=== PATIENT | female | born 1970 | race Caucasian/White ===

== ENCOUNTER → 2024-03-15 | Outpatient (CLI) | payer SELFPAY ==
--- NOTE | 2024-03-15 12:18 | US_ITS ---
EXAM: US PELVIS TRANSABDOMINAL AND TRANSVAGINAL, COMPLETE CLINICAL INDICATION: pelvic pain/uterine mass TECHNIQUE: Transabdominal and endovaginal pelvic ultrasound was performed with grayscale and color Doppler imaging. Endovaginal imaging was used for better evaluation of the endometrium and adnexa. COMPARISON: No relevant prior studies available. FINDINGS: UTERUS/CERVIX: Uterus measures 11.9 x 7.3 x 5.8 cm. Posterior 2.4 cm uterine fibroid noted. Additional smaller anterior fibroid suggested. Endometrial thickness is 8 mm. RIGHT OVARY: Normal. Blood flow is present in the right ovary. The right ovary measures 2.4 x 1.6 x 1.3 cm. LEFT OVARY: Normal. Blood flow is present in the left ovary. The left ovary measures 1.9 x 1.4 x 1.2 cm. FREE FLUID: None. US/Pelvic w/ Transvaginal IMPRESSION: Fibroid uterus. Electronically Signed: Kavin Yin MD at 15:48 EDT ,
--- OUTSIDE RECORDS SUMMARY | 2024-03-15 16:49 | XMS RPT_ITS | CCD ---
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 on above: Pattern: Regular 11-04-2022 09:30-0400 Systolic blood pressure 134 mm[Hg] Yolanda Everett MA [facility].; [employer] [employer] [facility]. Comment on above: Patient Position: Sitting; Cuff Location : Left Arm; Cuff Size: Standard 02-23-2021 10:29-0400 Body height 172.72 cm Moira Abbott LPN [facility], [facility].; [employer] [address], [facility]. 02-23-2021 10:29-0400 Body mass index (BMI) [Ratio] 39.84 kg/m2 Moira Abbott LPN [facility], [facility].; [place] [employer] [facility], [facility]. 02-23-2021 10:29-0400 Body surface area Derived from formula 2.29 m2 Moira Abbott LPN [facility], [facility].; [place] [employer] [facility]. 02-23-2021 10:29-0400 Body weight 118.84 kg Moira Abbott LPN [facility], [facility].; [place] [address], [employer]. 02-23-2021 10:29-0400 Diastolic blood pressure 83 mm[Hg] Moira Abbott LPN [facility], [facility].; [employer]. Comment on above: Patient Position: Sitting; Cuff Location : Left Arm; Cuff Size: Standard 02-23-2021 10:29-0400 Heart rate 76 /min Moira Marthey ENGINEERING MANAGER [employer].; [email or web address] Comment on above: Pattern: Regular 02-23-2021 10:29-0400 Systolic blood pressure 127 mm[Hg] Moira Abbott LPN [employer].; [email or web address] Comment on above: Patient Position: Sitting; Cuff Location : Left Arm; Cuff Size: Standard 02-28-2019 11:07-0400 Body height 172.72 cm Rachana Ramirez LPN Work Phone: [email or web address].; [email or web address] 02-28-2019 11:07-0400 Body mass index (BMI) [Ratio] 39.84 kg/m2 Rachana Ramirez ENGINEERING MANAGER Work Phone: [email or web address].; [email or web address] 02-28-2019 11:07-0400 Body surface area Derived from formula 2.29 m2 Rachana Ramirez LPN Work Phone: [email or web address].; [email or web address] 02-28-2019 11:07-0400 Body weight 118.84 kg Rachana Ramirez LPN Work Phone: [email or web address].; [email or web address] 02-28-2019 11:07-0400 Diastolic blood pressure 81 mm[Hg] Rachana Ramirez ENGINEERING MANAGER Work Phone: [email or web address].; [email or web address] Comment on above: Patient Position: Sitting; Cuff Location : Left Arm; Cuff Size: Standard 02-28-2019 11:07-0400 Heart rate 80 /min Rachana Ramirez ENGINEERING MANAGER Work Phone: [employer]; [email or web address] Comment on above: Pattern: Regular 02-28-2019 11:07-0400 Systolic blood pressure 145 mm[Hg] Rachana Peresy ENGINEERING MANAGER Work Phone: [email or web address].; [email or web address] Comment on above: Patient Position: Sitting; Cuff Location : Left Arm; Cuff Size: Standard 03-13-2018 14:28-0400 Body height 172.72 cm Rachana Ramirez LPN Work Phone: [employer]; [email or web address] 03-13-2018 14:28-0400 Body mass index (BMI) [Ratio] 41.66 kg/m2 Rachana Ramirez LPN Work Phone: [email or web address].; [email or web address] 03-13-2018 14:28-0400 Body surface area Derived from formula 2.34 m2 Rachana Ramirez LPN Work Phone: [email or web address].; [email or web address] 03-13-2018 14:280400 Body weight 124.29 kg Rachana Ramirez LPN Work Phone: [email or web address].; [email or web address] 03-13-2018 14:28-0400 Diastolic blood pressure 86 mm[Hg] Rachana Ramirez LPN Work Phone: [employer]; [email or web address] Comment on above: Patient Position: Sitting; Cuff Location : Left Arm; Cuff Size: Large 03-13-2018 14:28-0400 Heart rate 88 /min Rachana Ramirez LPN Work Phone: [employer]; [email or web address]. Comment on above: Pattern: Regular 03-13-2018 14:28-0400 Systolic blood pressure 142 mm[Hg] Rachana Ramirez LPN Work Phone: [employer]; [email or web address]. Comment on above: Patient Position: Sitting; Cuff Location : Left Arm; Cuff Size: Large 06-07-2016 11:28-0500 Body height 172.72 cm Rachana Ramirez LPN Work Phone: [email or web address].; [email or web address] 06-07-2016 11:28-0500 Body mass index (BMI) [Ratio] 39.38 kg/m2 Rachana James ENGINEERING MANAGER Work Phone: [employer]; [email or web address] 06-07-2016 11:28-0500 Body surface area Derived from formula 2.28 m2 Rachana Ramirez LPN Work Phone: [email or web address].; [email or web address] 06-07-2016 11:28-0500 Body weight 117.48 kg Rachana Ramirez ENGINEERING MANAGER Work Phone: [email or web address].; [email or web address] 06-07-2016 11:28-0500 Diastolic blood pressure 86 mm[Hg] Rachana Ramirez ENGINEERING MANAGER Work Phone: [email or web address].; [email or web address] Comment on above: Patient Position: Sitting; Cuff Location : Left Arm; Cuff Size: Large 06-07-2016 11:28-0500 Heart rate 91 /min Rachana Ramirez LPN Work Phone: [employer]; [email or web address]. Comment on above: Pattern: Regular 06-07-2016 11:28-0500 Systolic blood pressure 147 mm[Hg] Rachana Ramirez LPN Work Phone: [email or web address].; [email or web address] Comment on above: Patient Position: Sitting; Cuff Location : Left Arm; Cuff Size: Large 01-22-2012 09:18-0400 Body height 172.72 cm Thais Monge MD Work Phone: [email or web address].; [email or web address] 01-22-2012 09:18-0400 Body mass index (BMI) [Ratio] 35.12 kg/m2 Thais Monge MD Work Phone: [email or web address].; [email or web address] 01-22-2012 09:18-0400 Body surface area Derived from formula 2.17 m2 Thais Monge MD Work Phone: [email or web address].; [email or web address] 01-22-2012 09:18-0400 Body weight 104.78 kg Thais Monge MD Work Phone: [email or web address].; [email or web address] 01-22-2012 09:18-0400 Diastolic blood pressure 92 mm[Hg] Thais Monge MD Work Phone: [employer]. Comment on above: Patient Position: Sitting; Cuff Location : Left Arm; Cuff Size: Standard 01-22-2012 09:18-0400 Heart rate 63 /min Thais Monge MD Work Phone: [email or web address]. Comment on above: Pattern: Regular 01-22-2012 09:18-0400 Systolic blood pressure 142 mm[Hg] Thais Monge MD Work Phone: [employer]; [email or web address]. Comment on above: Patient Position: Sitting; Cuff Location : Left Arm; Cuff Size: Standard 06-01-2010 17:31-0500 Body weight 124.74 kg Rachana James ENGINEERING MANAGER Work Phone: [employer].; [email or web address] 06-01-2010 17:31-0500 Diastolic blood pressure 84 mm[Hg] Rachana James ENGINEERING MANAGER Work Phone: [employer].; [email or web address]. Comment on above: Patient Position: Sitting; Cuff Location : Left Arm; Cuff Size: Standard 06-01-2010 17:31-0500 Heart rate 86 /min Rachana James ENGINEERING MANAGER Work Phone: [employer].; [email or web address]. Comment on above: Pattern: Regular 06-01-2010 17:31-0500 Systolic blood pressure 136 mm[Hg] Rachana James ENGINEERING MANAGER Work Phone: [employer]; [email or web address]. Comment on above: Patient Position: Sitting; Cuff Location : Left Arm; Cuff Size: Standard 02-04-2010 14:39-0400 Body weight 123.38 kg Rachana James ENGINEERING MANAGER Work Phone: [employer]; [employer]. 02-04-2010 14:39-0400 Diastolic blood pressure 82 mm[Hg] Rachana Ramirez ENGINEERING MANAGER Work Phone: [email or web address].; [email or web address] Comment on above: Patient Position: Sitting; Cuff Location : Left Arm; Cuff Size: Standard 02-04-2010 14:39-0400 Heart rate 88 /min Rachana Ramirez ENGINEERING MANAGER Work Phone: [email or web address] Comment on above: Pattern: Regular 02-04-2010 14:39-0400 Systolic blood pressure 120 mm[Hg] Rachana Ramirez ENGINEERING MANAGER Work Phone: [employer]; [employer] Comment on above: Patient Position: Sitting; Cuff Location : Left Arm; Cuff Size: Standard Encounters Encounter Date Encounter Type Care Provider Facility Start: 03-01-2024 Review Thais dallas MD Work Phone: [employer] Start: 03-01-2024 End: 03-01-2024 Office outpatient visit 15 minutes Thais Monge MD Work Phone: [email or web address] Start: 08-19-2023 End: 08-19-2023 Orders Thais Monge MD Work Phone: [employer] Start: 06-03-2023 End: 06-03-2023 ambulatory [facility] Start: 06-03-2023 End: 06-03-2023 Office outpatient visit 15 minutes Thais Monge MD Work Phone: [employer] Start: 06-03-2023 Review Thais dallas MD Work Phone: [employer] Start: 11-04-2022 End: 11-04-2022 ambulatory [facility] Start: 11-04-2022 End: 11-04-2022 Office outpatient visit 15 minutes Thais Monge MD Work Phone: [employer] Start: 02-23-2021 End: 02-23-2021 Office outpatient visit 15 minutes Thais Monge MD Work Phone: [employer] Start: 05-31-2019 End: 05-31-2019 Historical Summary Thais Monge MD Work Phone: [employer] Start: 02-28-2019 End: 02-28-2019 Office outpatient visit 15 minutes Thais Monge MD Work Phone: [employer] Start: 03-13-2018 End: 03-13-2018 Patient encounter procedure Thais Monge MD Work Phone: [employer] Start: 06-07-2016 End: 06-07-2016 Patient encounter procedure Thais Monge MD Work Phone: [employer] Start: 01-22-2012 End: 01-22-2012 Patient encounter procedure Thais Monge MD Work Phone: [employer] Start: 06-15-2010 End: 06-15-2010 Nursing evaluation of patient and report Thais Monge MD Work Phone: [employer] Start: 06-01-2010 End: 06-03-2010 Patient encounter procedure Thais Monge MD Work Phone: [employer] Start: 05-28-2010 End: 05-28-2010 Nursing evaluation of patient and report Thais Monge MD Work Phone: [employer] Start: 05-14-2010 End: 05-14-2010 Nursing evaluation of patient and report Thais Monge MD Work Phone: [employer] Start: 05-07-2010 End: 05-07-2010 Orders Thais Monge MD Work Phone: [employer] Start: 04-30-2010 End: 04-30-2010 Nursing evaluation of patient and report Thais Monge MD Work Phone: [employer] Start: 04-24-2010 End: 04-24-2010 Medication [facility] Start: 04-23-2010 End: 04-23-2010 Orders Thais Monge MD [facility] Start: 04-16-2010 End: 04-16-2010 Nursing evaluation of patient and report Thais Monge MD Work [facility] Start: 04-08-2010 End: 04-08-2010 Orders Thais Monge MD Work Phone[facility] [employer] [facility] Start: 04-02-2010 End: 04-02-2010 Nursing evaluation of patient and report Thais Monge MD Work Phone: [employer] [facility] Start: 03-19-2010 End: 03-19-2010 Nursing evaluation of patient and report Thais Monge MD [facility] Start: 03-11-2010 End: 03-11-2010 Orders Thais Monge MD Work Phone: [employer] [facility] Start: 02-19-2010 End: 02-19-2010 Orders Thais Monge MD Work Phone: [employer] [facility] Start: 02-04-2010 End: 02-04-2010 Patient encounter procedure Thais Monge MD Work [facility] Procedures Date Procedure Procedure Detail Performing Clinician Start: 06-03-2023 End: 06-06-2023 Radiologic exam knee complete 4/more views Thais Monge MD Work Phone: Start: 11-04-2022 End: 11-05-2022 Dup-scan lxtr art/artl bpgs uni/lmtd study Dean Roche PA-C Work Phone: Start: 02-23-2021 End: 02-24-2021 Dup-scan lxtr art/artl bpgs uni/lmtd study Jennifer Sosa PA-C Work Phone: Start: 05-25-2019 End: 05-25-2019 pelvic u/s Thais Locke Work Phone: Comment on above: Within Normal Limits . Start: 03-02-2019 End: 03-02-2019 Microscopic examination of cervical Papanicolaou smear Thais Monge MD Work Phone: Comment on above: 02/04/10 neg, 9 neg no co-test Start: 03-02-2019 End: 05-31-2019 Us abdominal real time w/image documentation Thais Monge MD Work Phone: Start: 02-28-2019 End: 02-28-2019 Flu imm no admin doc erickson mao MD Work Phone: Start: 02-28-2019 End: 02-28-2019 Flu vaccine refused Rachana Ramirez LPN Work Phone: Start: 03-13-2018 End: 03-13-2018 Flu imm no admin doc erickson mao MD Work Phone: Start: 06-07-2016 End: 06-08-2016 Ct head/brain w/o contrast material Thais Monge MD Work Phone: Start: 01-22-2012 End: 01-25-2012 Dup-scan xtr veins unilateral/limited study Sadie Li MD Work Phone: Start: 07-13-2010 End: 12-30-2010 Dup-scan xtr veins unilateral/limited study Thais Monge MD Work Phone: Start: 04-08-2010 End: 04-13-2010 Dup-scan xtr veins unilateral/limited study Thais Monge MD Work Phone: Plan of Treatment Date Care Activity Detail Author Start: 06-03-2023 Radiologic exam knee complete 4/more views [facility] Start: 02-04-2010 Provider Instruction s for Treatment [facility], [facility].; [facility] Immunizations Immunization Date Immunization Notes Care Provider Fa cility NEGATED: Highlighted row has not occurred! influenza, injectable, quadrivalent, contains preservative Thais Monge MD Work Phone: [employer]; [employer] Payers Date Payer Category Payer Unknown [id number] 1970 Unknown [id number] Unknown Social History Date Type Detail Facility Child(glo) Child(glo) [employer]; [employer] Tobacco Use: Tobacco Use: ; Never smoker. [employer]; [employer] Female [employer]; [employer] Work Phone: Never smoked tobacco [employer]; [employer] Work Phone: Family History Endometriosis Status:Active Comments:Negativ e Family History Of. Leukemia Status:Active Comments:Son. Uterine Cancer Status:Active Comments:Negativ e Family History Of. Endometriosis Status:Active Comments:Negativ e Family History Of. Father Status:Active Comments:In good health. as of 06/03/2023 age 90 and doing well Leukemia Status:Active Comments:Son. Mother Status:Active Comments: d. CHF Uterine Cancer Status:Active Comments:Negativ e Family History Of. Endometriosis Status:Active Comments:Negativ e Family History Of. Father Status:Active Comments:In good health. as of 06/03/2023 age 90 and doing well Leukemia Status:Active Comments:Son. Mother Status:Active Comments: d. CHF Uterine Cancer Status:Active Comments:Negativ e Family History Of. Endometriosis Status:Active Comments:Negativ e Family History Of. Father Status:Active Comments:In good health. as of 06/03/2023 age 90 and doing well Leukemia Status:Active Comments:Son. Mother Status:Active Comments: d. CHF Uterine Cancer Status:Active Comments:Negativ e Family History Of. Endometriosis Status:Active Comments:Negativ e Family History Of. Father Status:Active Comments:In good health. as of 06/03/2023 age 90 and doing well Leukemia Status:Active Comments:Son. Mother Status:Active Comments: d. CHF Uterine Cancer Status:Active Comments:Negativ e Family History Of. Endometriosis Status:Active Comments:Negativ e Family History Of. Father Status:Active Comments:In good health. as of 06/03/2023 age 90 and doing well Leukemia Status:Active Comments:Son. Mother Status:Active Comments: d. CHF Uterine Cancer Status:Active Comments:Negativ e Family History Of. Summary Purpose Advance Directives No Advanced Directives Records Found Additional Source Comments INFORMATION SOURCE (unrecogn ized section and content) DATE CREATED AUTHOR 06/06/2023 [facility] FOR RECORDS PERTAINING TO PATIENTS WHO ARE OR HAVE BEEN ENROLLED IN A CHEMICAL DEPENDENCY/SUBSTANCEABUSE PROGRAM, SOME INFORMATION MAY BE OMITTED. This clinical summary was aggregated from multiple sources. Caution should be exercised in using it in the provision of clinical care. This summary normalizes information from multiple sources, and as a consequence, information in this document may materially change the coding, format and clinical context of patient data. In addition, data may be omitted in some cases. CLINICAL DECISIONS SHOULD BE BASED ON THE PRIMARY CLINICAL RECORDS. [email or web address] provides no warranty or guarantee of the accuracy or completeness of information in this document.
== END | disposition home or self-care (01) ==
PROVIDERS: PCP Family Medicine; Referring Provider Nurse Practitioner Family; Visit Provider Nurse Practitioner Family
DX: R10.2 Pelvic and perineal pain (principal); N85.8 Other specified noninflammatory disorders of uterus
CPT/HCPCS: 76830; 76856

== ENCOUNTER 2024-05-01 10:34 | Day surgery (SDC) | payer SELFPAY ==
[2024-05-01] VITALS (10 sets, daily range): BP systolic 115–149; BP diastolic 57–80; PULSE 72–82; RESP 16–18; TEMP 36.1–36.9; O2SAT 95–100; BMI 42.1
[2024-05-01 11:05] LABS: Internal QC Validated? YES +Cl - CLEAR BKGD; Pregnancy, Urine Negative Negative
[2024-05-01 11:34] LABS: Hematocrit 26.4 % (37-47); Mean Corp Hgb Conc 26.5 g/dL (32-36); Mean Corpuscular Hgb 18.3 pg (27.0-32.0); Mean Corpuscular Volume 69.1 fL (81-99); Mean Platelet Vol. 9.8 fl (6.2-12.0); POSITIVE MORPHOLOGY YES; Platelet Count 419 K/mm3 (150-450); RBC Distribution Width CV 21.1 % (11.6-14.6); RBC Distribution Width SD 51.7 fl (35.1-43.9); Red Blood Count 3.82 M/mm3 (4.2-5.4); White Blood Count 6.9 K/mm3 (4.4-11.0)
[2024-05-01 11:39] LABS: Scan Indicated on CBC? Y/N YES- FLAGS NOTED
[2024-05-01 11:53] LABS: Differential Comment SCANNED
--- NOTE | 2024-05-01 11:57 | PCM.PRE.AN2 ---
ASA Classification* ASA Classification ASA Classification: 3 Assessment & Plan Anesthesia* Anesthesia Assessment Anesthesia Assessment: Discussed sedation and/or anesthesia options, risks, benefits, and alternatives with patient/parents/legal guardian/POA. Questions invited. The patient/parents/legal guardian/POA seems to understand and agrees to proceed with anesthesia plan. Reviewed the physical assessment, medical history, allergy history and patient home medications list prior to surgery/procedure/anesthetic and documented any changes. Performed airway and anesthesia risk assessments. Anesthesia Type Anesthesia Type: MAC Anesthesia Focused Assessment* Temperature: 97 F Pulse Rate: 77 Blood Pressure: 149/68 Respiratory Rate: 16 Pulse Ox: 100 Airway Assessment Mouth opens: >3 cm Mallampati Score: II Focused Labs Anesthesia Preop lab: CBC WBC 6.9 K/mm3 (4.4-11.0) 05/01/24 11:15 RBC 3.82 M/mm3 (4.2-5.4) L 05/01/24 11:15 Hgb 7.0 g/dL (12.0-15.0) L 05/01/24 11:15 Hct 26.4 % (37-47) L 05/01/24 11:15 Plt Count 419 K/mm3 (150-450) 05/01/24 11:15 CHEMISTRY COAG Urine Test Negative Negative 05/01/24 10:55 Pre-Assessment Diagnosis/Proposed Procedure Planned Operative Procedure(s): HYSTEROSCOPY D&C CERVICAL CONIZATION Anesthesia History 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 When Was Last Pacemaker Check QUESTION #4 FULL TEXT: You/Your Family Experience fever (hyperthermia) with Anesthesia Last Oral Intake Last Oral intake: Last Oral Intake NPO since 23:00 05/01/24 11:09 Meds taken in AM with sips of water? Meds patient instructed to take am of surgery PONV PONV - sugar house supervisor: PONV - sugar house supervisor Female Yes 04/25/24 10:52 HX of Motion Sickness No 04/25/24 10:52 HX of N/V After Surgery No 04/25/24 10:52 Non-Smoker Yes 04/25/24 10:52 Duration of Surgery greater No 04/25/24 10:52 than 60 minutes Number of Risk Factors 2 04/25/24 10:52 PONV Score Moderate Risk 04/25/24 10:52 Height & Weight Height & Weight: Anesthesia: Height & Weight Height 5 ft 7 in 05/01/24 11:09 Weight: 122 kg 05/01/24 11:09 Body Mass Index (BMI) 42.1 05/01/24 11:09 Respiratory Assessment Respiratory Assessment - sugar house supervisor: Respiratory Tract Infection Hx - sugar house supervisor Hx Respiratory Tract Infection No 04/25/24 10:52 STOP Sleep Apnea STOP Sleep Apnea - sugar house supervisor: STOP Sleep Apnea - sugar house supervisor Hx Hypertension No 04/25/24 10:52 Hx Sleep Apnea No 04/25/24 10:52 CPAP BIPAP Do you snore loudly (louder Yes 04/25/24 10:52 than talking or can be heard Do you often feel tired/ No 04/25/24 10:52 fatigued/ sleepy during daytime? Has anyone observed you stop No 04/25/24 10:52 breathing during sleep? STOP Results Negative 04/25/24 10:52 QUESTION #5 FULL TEXT : Do you snore loudly (louder than talking or can be heard through closed doors)? Tobacco Use History Tobacco Use History - sugar house supervisor: Tobacco Use History - sugar house supervisor Tobacco Use Smoking Status Never smoker 04/25/24 10:52 Hx Tobacco Use No 04/25/24 10:52 Years Smoking Packs Smoked per Day Smoking Cessation Date was within the last 15 years Hx Smoking Cessation Date Hx Smoking Cessation Counseling Hematologic Medial History Hematologic Hx - sugar house supervisor: Hematologic Medical Hx - stock supervisor Hx of Blood Transfusion Yes 04/25/24 10:52 Hx of Transfusion in last 3 No 04/25/24 10:52 Months Date of Last Transfusion (if within last 3 months) Ever experience any problems No 04/25/24 10:52 with transfusion(s)? Specify any problems Hx of Preganancy in last 3 No 04/25/24 10:52 Months Nurse Filling Out Transfusion DSCHRIBER 04/25/24 10:52 & Questions: Date: 04/25/24 04/25/24 10:52 Time: 10:53 04/25/24 10:52 Patient unable to answer at this time (ie. confused, unrespo /Reproduction History /Reproductive History - sugar house supervisor: /Reproductive Hx- sugar house supervisor Hx Now No 04/25/24 10:52 Gestational Age (in weeks): EDC: Hx Hx Para Hx Section SAB No 04/25/24 10:52 PFS Medical History Wears glasses DVT (deep venous thrombosis) Restless legs Injury of head and neck Shortness of breath on exertion Non-smoker Leg cramps History of pain when walking History of edema History of tachycardia Hx of fracture of leg Home Medications ?Medication ?Instructions ?Recorded ?Last Taken ?Type ARTIC SEA 5 cap PO DAILY 04/25/24 05/01/24 History magnesium 250 mg tablet 250 mg PO DAILY 04/25/24 05/01/24 History Allergy/AdvReac Type Severity Reaction Status Date / Time No Known Allergies Allergy Verified 05/01/24 11:08 Family History Mother Heart failure Brother Diabetes Surgical History Hx of cholecystectomy Social History adopted: No household members: spouse and children number of children: 7 sexually active: Yes (not currently w poss prolapse) Smoking Status: Never smoker alcohol intake: never substance use type: does not use chay/congregation: Sikh seatbelt use: always do you feel safe at home: Yes additional social history: Joey- Review of Systems (Anesthesia) ROS Narrative System reviewed and no additional complaints, except as documented.
--- NOTE | 2024-05-01 12:14 | HP.PCM_ITS ---
<Statement entered by Brittani Cho DO - 05/04/24 17:33> UPDATE- I have seen the patient and performed any clinically relevant updates to the history and physical exam. Brittani Cho DO History and Physical Date of Admission: 05/01/24 Intake Vital Signs 03/14/2413:03 04/05/2413:50 Height 5 ft 7 in 5 ft 7 in Weight: 265 lb 269 lb 6 oz BMI 41.5 42.2 BP 157/84 H 157/82 H Intake Visit Reasons: DISCUSS US/UTERINE MASS. 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: No Is patient in pain?: No Allergies No Known Allergies Allergy (Verified 04/05/24 13:53) Medications ?Medication ?Instructions ?Recorded ?Confirmed ?Type NK 03/14/24 04/05/24 History Post menopausal: No Patient : No : No PFSH Surgical History Hx of cholecystectomy Family History Mother Heart failureBrother Diabetes Social History adopted: No household members: spouse and children number of children: 7 sexually active: Yes (not currently w poss prolapse) Smoking Status: Never smoker alcohol intake: never substance use type: does not use chay/episcopalian: Stoney seatbelt use: always do you feel safe at home: Yes additional social history: Joey- HPI DISCUSS US/UTERINE MASS. Details: RADHA GRIFFITHS is a 53 year old who presents for discussion about something coming through the cervix or vagina and it has started bleeding a little and is causing pain. Ultrasound shows the following: EXAM: US PELVIS TRANSABDOMINAL AND TRANSVAGINAL, COMPLETE CLINICAL INDICATION: pelvic pain/uterine mass TECHNIQUE: Transabdominal and endovaginal pelvic ultrasound was performed with grayscale and color Doppler imaging. Endovaginal imaging was used for better evaluation of the endometrium and adnexa. COMPARISON: No relevant prior studies available. FINDINGS: UTERUS/CERVIX: Uterus measures 11.9 x 7.3 x 5.8 cm. Posterior 2.4 cm uterine fibroid noted. Additional smaller anterior fibroid suggested. Endometrial thickness is 8 mm. RIGHT OVARY: Normal. Blood flow is present in the right ovary. The right ovary measures 2.4 x 1.6 x 1.3 cm. LEFT OVARY: Normal. Blood flow is present in the left ovary. The left ovary measures 1.9 x 1.4 x 1.2 cm. FREE FLUID: None. US/Pelvic w/ Transvaginal IMPRESSION: Fibroid uterus. The patient states that her last pap was with her pcp 2 years ago and was normal. She has never had any abnormal paps before. History 7 Elective abortions Hx Para 7 Spontaneous abortions Hx # Term Pregnancies Ectopic pregnancies Hx # Pregnancies Multiple births # of living children 7 Past Pregnancies Del. Date Name GA/Weeks Outcome Route Bth Weight Gen Labor Lgth Anesthesia Del Locatn Provider FOB 12/31/93 [facility] 11/09/95 Samm Stewart [facility] 04/14/98 Horace [facility] 06/05/00 Xena [facility] 12/07/02 Alena [facility] 12/15/07 Sademartha [facility] 12/25/09 Tylor [facility] ROS Const ROS Unobtainable: All systems reviewed & are unremarkable except as noted in H Resp Resp: Reports system reviewed and no additional complaints, except as documented; Denies cough GI GI: Reports as per HPI Psych Psych: Reports system reviewed and no additional complaints, except as documented Exam Const General: cooperative, healthy appearing, comfortable and no acute distress Resp Effort & Inspection: normal respiratory effort General: bimanual renal exam normal bilaterally External Female Exam: normal appearance of the urethra Urethra: normal appearance of the urethra Speculum Exam - Vagina: normal appearance of the vagina Speculum Exam - Cervix: abnormal appearance of the cervix, cervical os open and mass (large non-tender, firm mass, likely consistent with a fibroid. ) pedunculated Bimanual Exam- Adnexa, other: normal adnexae, rectocele (mild ) and cystocele (mild) Pelvic Support: cystocele (mild) and rectocele (mild ) OB/External & Speculum: cervical os open Speculum Exam: cervical os open Skin General: no rashes or lesions noted Psych Appearance: grossly normal Speech and Movement: speech and movement normal Coding Level of Care Code Off vis,est,level 4 Diagnoses Uterine fibroid D25.9 Pelvic pain R10.2 Assessment and Plan Assessment and Plan (1) Uterine fibroid: Status: Acute (2) Pelvic pain: Status: Acute Plan: After discussing the patient's diagnosis and treatment plan options, patient wishes to proceed with surgical management. I have discussed with the patient the risks, benefits, and alternatives of the procedure which include but are not limited to risks of anesthesia, bleeding, infection, possible damage to bowel, bladder, or surrounding vasculature which could lead to additional surgery to evaluate any complications. Patient agrees to procedure and wishes to proceed. ACOG/uptodate references given for additional information regarding procedure. plan is to remove the pedunculated cervical fibroid with electrocautery or cold knife and perform a hysteroscopy D&C after removal.
--- NOTE | 2024-05-01 12:40 | MASS_PTH ---
PATIENT: RADHA GRIFFITHS LOC: [facility] [place] U#:[id number] AGE/SX: 53/F ROOM: RE05/01/[address]: Dr. Brittani Cho DO : 1970 BED: DIS: 05/01/2024 SPEC #: [id number] RECD: 05/02/24 07:26 STATUS: VICKIE YORDY #: [id number] LUZ MARIA: 05/01/24 12:[address]: Brittani Cho DEPT: SURGICAL PATHOLOGY RECD BY: Rachele Adrian ENTERED: 05/02/24 11:22 SP TYPE: Mass OTHR DR: Dr. Samm Jansen MD Tissues: A - Uterine cervix, NOS B - Endometrium, NOS Procedures: Surgery Specimen Level IV HEADER OPERATION: Hysteroscopy, D&C, removal of cervical mass PRE-OP DIAGNOSIS: Uterine fibroid, pelvic pain TISSUE SUBMITTED: A- Cervical mass, B- Endometrial curettings MICROSCOPIC DIAGNOSIS A. Cervical mass, excision: Leiomyoma. A fragment of benign endocervical polyp. See comment. B. Endometrial curettings: Secretory endometrium. 05/03/2024 COMMENT A. Most of the lesion shows overlying endometrial tissue, favor submucosal leiomyoma, focal area shows squamous epithelium lining. Correlation with clinical findings and appropriate follow up are necessary. Case has been reviewed in consultation with Dr. Crum who concurs with the above diagnosis. IDC:AM MICROSCOPIC DESCRIPTION Slides are reviewed. GROSS DESCRIPTION A. Received in fixative is one container labeled with the patient's name and designated Cervical mass. The specimen consists of a jj nodular mass measuring 5.0 x 4.5 x 3.0cm and weighing 29gm. Sections reveal jj whorled cut surfaces without areas of hemorrhage, necrosis or cystic degeneration Also present in the container is a detached piece of soft tissue measuring 1.5 x 1.0 x 0.3cm.. Dry Cleaner Apprentice sections are submitted in six cassettes. Cassette 1 contains the detached piece of tissue and the base of the nodular piece of tissue. B. Received in fixative is one container labeled with the patient's name and designated Endometrial curettings. The specimen consists of multiple irregular fragments of jj-pink soft tissue mixed with polypoid tissue and blood clots that in aggregate measure 6.0 x 5.0 x 1.5 cm. The specimen is totally submitted in ten cassettes. 05/02/2024 TC:1 CPT:67466f2
--- NOTE | 2024-05-01 13:30 | DCINST_ITS ---
Discharge Instructions Diet Discharge Diet: No restrictions DC O2, CPAP, BIPAP needs Additional Home O2 Discharge instructions: No Dressing / Incision Discharge Activity: Return to Normal Activity, May Shower and May Take a Tub Bath (after 1 week) May resume sexual activity in: 1-2 weeks Weight Bearing Status: Weight bearing as tolerated Lifting Restrictions: none Dressing / Incision Call your doctor if you observe: Fever of 101 or Higher, Using more than 1 pad per hour, Shortness of breath and Uncontrolled pain Follow Up Care Please Follow Up With: Brittani Cho DO When: Call [phone] to schedule appointment. Test Results: Test results from this visit will be discussed in further detail at your follow- up appointment, if applicable. Discharge Plan Admission Attending Provider: Brittani Cho Primary Care Provider: Samm Jansen Instructions Print Language: Syriac Discharge Orders/Prescriptions Prescriptions: New ibuprofen 800 mg tablet 800 mg PO Q8H PRN (Reason: pain) Qty: 30 0RF ferrous gluconate 324 mg (37.5 mg iron) tablet 648 mg PO BID Qty: 60 3RF Continued ARTIC SEA 5 cap PO DAILY magnesium 250 mg tablet 250 mg PO DAILY Referrals / Follow Up: Samm Jansen MD [Primary Care Provider] - Disposition Disposition (needs filled in before D/C Order can be placed): Home, Self Care
[2024-05-01] MEDS: Lidocaine 1% (20 ml mdv) 20 ML Vial (13:41)
--- NOTE | 2024-05-01 14:26 | PCM.OPRPT ---
Problems Associated Problem List Diagnoses (1) Uterine fibroid: (2) Pelvic pain: (3) Menorrhagia: (4) Anemia: (5) Uterine mass: Multi Select Codes Urinary/Genital Urinary/Genital CPT Codes: 61145 Hysteroscopy,EMC, Polypectomy and Other Procedure See Report (removal of cervical mass. 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 machine operator: No Type of Anesthesia: Local and MAC RN Documented Start/Stop Times: Operation Date: 05/01/24 12:40 Case Time Into Pre-Op 05/01/24 10:58 Anesthesia Start 05/01/24 13:24 Into Room 05/01/24 13:24 Procedure Start 05/01/24 13:42 Procedure End 05/01/24 13:55 Procedure Start Time: 13:42 Procedure Stop Time: 13:55 Select all DRAINS/GRAFTS/IMPLANTS that apply: None Estimated Blood Loss: 20cc Specimen collected: Yes Description of specimen(s) removed: cervical mass, endometrial curetting's Description of surgery: Patient was prepped and draped in a normal sterile fashion under MAC anesthesia. A weighted speculum was placed in the vagina and a large protruding cervical mass was identified. The mass was grasped with a single toothed tenaculum and twisted on the the stalk until it came off. A secondary polyp structure was noted on the cervix. This was grasped with pick ups and cut off using scissors. The anterior lip of the cervix was grasped with a single-tooth tenaculum. A paracervical block was placed with 1% lidocaine. Cervix was progressively dilated to allow passage of a 5 mm hysteroscope. The lining was fully visualized and noted to have proliferative tissue and a fundal firm mass, likely secondary to a fibroid. Uterine sounded to 11 cm. Curettage was performed and a large amount of tissue was collected and sent to pathology. All instruments were removed from the vagina and excellent hemostasis was noted. Patient was awoken and taken to recovery in stable condition. Surgical Findings: large cervical mass, thick endometrial tissue, uterine prolapse with rectocele grade 2 Complications Complications: No Admit VTE Documentation VTE Present on Admission: No VTE Mechan Device Prophylaxis: SCD's VTE Pharm Prophylaxis ordered?: No
--- NOTE | 2024-05-01 14:48 | PCM.POST.ANE ---
Anesthesia: Postop Eval I Current Vital Signs Temperature: 97 F Pulse Rate: 78 Blood Pressure: 123/69 Respiratory Rate: 16 Pulse Ox: 98 Oxygen Delivery Method: Room Air Assessment Airway patent: Yes Spontaneous unlabored respirations: Yes Mental status: Awake and Calm nausea: No Vomiting: No Anesthesia Complication: No Fluid Hydration Crystalloid volume administer (ml): 30 Total IV fluid infused: 30 Progress Note Anesthesia document: Postop Eval 1 completed: Yes
[2024-05-01] MEDS: Ibuprofen 200 MG Tablet 800 MG PO (15:08)
--- NOTE | 2024-05-01 18:52 | POSTOPAN2_ITS ---
Anesthesia Postop Eval I Sum Postop Eval Completion status Anesthesia document: Postop Eval 1 completed: Yes Anesthesia Postop Eval I Summary Anesthesia Postop Eval I Summary: Anesthesia Postop Eval I: Assessment Summary Airway patent Yes 05/01/24 14:50 PAPER COATING MACHINE OPERATOR.[email or web address] Spontaneous unlabored Yes 05/01/24 14:50 PAPER COATING MACHINE OPERATOR.JBLOU respirations Mental status Awake,Calm 05/01/24 14:50 PAPER COATING MACHINE OPERATOR.JBLOU nausea No 05/01/24 14:50 PAPER COATING MACHINE OPERATOR.JBLOU Vomiting No 05/01/24 14:50 PAPER COATING MACHINE OPERATOR.JBLOU Anesthesia Postop Eval I: Fluid Summary Crystalloid volume administer 30 05/01/24 14:50 PAPER COATING MACHINE OPERATOR.JBLOU (ml) Colloids volume administered ( ml) Blood Product volume administered (ml) Total IV fluid infused 30 05/01/24 14:50 PAPER COATING MACHINE OPERATOR.JBLOU Anesthesia Postop Eval I: Summary Notes Anesthesia Complication No 05/01/24 14:50 PAPER COATING MACHINE OPERATOR.JBLOU Anesthesia Complication Comment: Post-operative progress note Anesthesia: Postop Eval II Evaluation Mental status: Awake Pain Level: 2 nausea: No Vomiting: No
--- NOTE | 2024-05-01 18:52 | PCM.POSTANE2 ---
Anesthesia Postop Eval I Sum Postop Eval Completion status Anesthesia document: Postop Eval 1 completed: Yes Anesthesia Postop Eval I Summary Anesthesia Postop Eval I Summary: Anesthesia Postop Eval I: Assessment Summary Airway patent Yes 05/01/24 14:50 BANDER AND CELLOPHANER HELPER MACHINE.[email or web address] Spontaneous unlabored Yes 05/01/24 14:50 BANDER AND CELLOPHANER HELPER MACHINE.JBLOU respirations Mental status Awake,Calm 05/01/24 14:50 BANDER AND CELLOPHANER HELPER MACHINE.JBLOU nausea No 05/01/24 14:50 BANDER AND CELLOPHANER HELPER MACHINE.JBLOU Vomiting No 05/01/24 14:50 BANDER AND CELLOPHANER HELPER MACHINE.JBLOU Anesthesia Postop Eval I: Fluid Summary Crystalloid volume administer 30 05/01/24 14:50 BANDER AND CELLOPHANER HELPER MACHINE.JBLOU (ml) Colloids volume administered ( ml) Blood Product volume administered (ml) Total IV fluid infused 30 05/01/24 14:50 BANDER AND CELLOPHANER HELPER MACHINE.JBLOU Anesthesia Postop Eval I: Summary Notes Anesthesia Complication No 05/01/24 14:50 BANDER AND CELLOPHANER HELPER MACHINE.JBLOU Anesthesia Complication Comment: Post-operative progress note Anesthesia: Postop Eval II Evaluation Mental status: Awake Pain Level: 2 nausea: No Vomiting: No
== END 2024-05-01 16:35 | disposition home or self-care (01) ==
LOC: SDC 10:44 → AC 10:46
PROVIDERS: Anesthesiology; PCP Family Medicine; Referring Provider Obstetrics & Gynecology; Visit Provider Obstetrics & Gynecology
PROC: 0UDB8ZZ Extraction of Endometrium, Via Natural or Artificial Opening Endoscopic (ICD-10-PCS; CPT 58558; principal; 2024-05-01 12:30)
DX: D25.0 Submucous leiomyoma of uterus (principal); N84.1 Polyp of cervix uteri; N92.0 Excessive and frequent menstruation with regular cycle; N81.2 Incomplete uterovaginal prolapse; D64.9 Anemia, unspecified
CPT/HCPCS: 58558; 00952; 81025; 85027; 86850; 86900; 86901; 88305; A4216; J2405

== ENCOUNTER → 2024-05-24 | Outpatient (CLI) | payer SELFPAY ==
[2024-05-24 15:44] LABS: Hematocrit 34.4 % (37-47); Hemoglobin 9.7 g/dL (12.0-15.0); Mean Corp Hgb Conc 28.2 g/dL (32-36); Mean Platelet Vol. 9.4 fl (6.2-12.0); POSITIVE MORPHOLOGY YES; Platelet Count 452 K/mm3 (150-450); RBC Distribution Width CV 28.4 % (11.6-14.6); RBC Distribution Width SD 76.6 fl (35.1-43.9); Red Blood Count 4.41 M/mm3 (4.2-5.4); White Blood Count 7.9 K/mm3 (4.4-11.0)
[2024-05-24 16:20] LABS: Scan Indicated on CBC? Y/N YES- FLAGS NOTED
[2024-05-24 16:23] LABS: Differential Comment SCANNED
== END | disposition home or self-care (01) ==
PROVIDERS: PCP Family Medicine; Referring Provider Obstetrics & Gynecology; Visit Provider Obstetrics & Gynecology
DX: D64.9 Anemia, unspecified (principal)
CPT/HCPCS: 36415; 85027

== ENCOUNTER 2025-03-06 10:30 | Outpatient (RCR) | payer SELFPAY ==
--- NOTE | 2024-09-06 10:42 | HP.PTEVAL ---
Patient's Visit Information Visit Information Visit Information: RADHA GRIFFITHS is a 53 year old F referred to Physical Therapy by Dr. Brittani Cho DO with a diagnosis of . Date of Evaluation: Physical Therapist: Rosanna Wyatt Anticipated Interventions Text: Thank you for the opportunity to evaluate your patient. For Medicare and Medicare HMO plans, please review the plan of care and approve it. It will need to be FAXED BACK to us at [phone] for Medicare purposes. For Medicare only, by signing this I certify the plan of care. Please let me know if there are questions or concerns regarding this plan of care. Physician Signature: Date:
--- NOTE | 2024-09-06 11:46 | HP.PTEVAL_ITS ---
Patient's Visit Information Visit Information Visit Information: RADHA GRIFFITHS is a 53 year old F referred to Physical Therapy by Dr. Brittani Cho DO with a diagnosis of Cystocele, rectocele, uterovaginal prolapse. Date of Evaluation: 09/06/24 Physical Therapist: Rosanna Wyatt Visit Plan Frequency: 1x/Week Duration: 2 Months Plan: Continue 1 x week. Add week 2. Continue pelvic floor releases to address tightness (worse on left side layer 2-3). Look at breathing mechanics and low back next visit. Has she tried splinting? Subjective Subjective: She had her fibroid tumor removed from her cervix in April 2024. She could feel it right inside the vaginal opening. She had surgery in April. In June, she started feeling something again. She thought it was another fibroid. She had quite a bit of pain with the fibroid. She isn't having bulging outside and it goes away sometimes. Dr. Benítez said she could do surgery. She mentioned a pessary but she wants to try PT first. Sometimes she feels that she doesn't empty her bladder completely. She hasn't had a period in 4-5 months. No leakage. She feels pressure vaginally with lifting. She doesn't think she "works hard". She does housework, cooking, gardening. 7 children, 10 pregnancies. All vaginal deliveries. First baby she had major tearing with 20 stitches. Sometimes she has lower back pain. Not that she can't do her work. More at nighttime. Not worse on one side. Sometimes she feels like she doesn't empty her bowels completely. She gets up 2 x night. She hasn't tried kegels. No pain. She is uncomfortable with intercourse. Her goal is to manage the prolapses without surgery. Pain Low back pain: Pain Intensity (Out of 10): 2 Pain Intensity Range: 2 and 4 Objective Objective: POPDI-6 5, CRAD-8 9, NILDA-6 2 LAYCOCK 1 DIFFICULTY RELAXING AND ENGAGING ANTERIORLY- contraction barely palpable MILD, MODERATE PELVIC FLOOR TIGHTNESS LEFT SIDE LAYER 2-3 CYSTOCELE 1 RECTOCELE 2 Can feel cervix at tip of finger Did not look at breathing or low back yet Goals Goal 1:: Radha will be able to be on her feet for up to 1-2 hours at a time to do cooking activities without feeling vaginal pressure due to her prolapse. 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 Goal Time Frame: 8-12 Weeks Goal 3:: Radha will be independent with splinting for bowel movements and will not experience difficulty eliminating. Goal Time Frame: 8-12 Weeks Rehabilitation Potential Physical Therapy Diagnosis: Rectocele, Cystocele Rehabilitation Potential: Good Anticipated Interventions Patient/Client Instruction: Educate patient on: Condition and Plan of Care For the Purpose of:: To improve muscle performance and motor function, To improve ability to perform ADL's, To increase tolerance to activity/condition/position, To improve health and function and To improve self management Therapeutic Exercise to Include: Strength training and Neuromotor development Comment: Pelvic floor strengthening to support pelvic organs and lessen prolapse For the Purpose of:: To improve muscle performance and motor function, To increase tolerance to activity/condition/position, To improve performance and independence with ADL's, To improve health and function and To improve self management Manual Therapy Techniques to Include: Trigger point massage and Soft tissue mobilization For the Purpose of:: To improve muscle performance and motor function Text: Thank you for the opportunity to evaluate your patient. For Medicare and Medicare HMO plans, please review the plan of care and approve it. It will need to be FAXED BACK to us at [phone] for Medicare purposes. For Medicare only, by signing this I certify the plan of care. Please let me know if there are questions or concerns regarding this plan of care. Physician Signature: Date:
--- NOTE | 2024-09-06 12:01 | HP.PTEVAL ---
Patient's Visit Information Visit Information Visit Information: RADHA GRIFFITHS is a 53 year old F referred to Physical Therapy by Dr. Brittani Cho DO with a diagnosis of Cystocele, rectocele, uterovaginal prolapse. Date of Evaluation: 09/06/24 Physical Therapist: Rosanna Wyatt Visit Plan Frequency: 1x/Week Duration: 2 Months Plan: Continue 1 x week. Add week 2. Continue pelvic floor releases to address tightness (worse on left side layer 2-3). Look at breathing mechanics and low back next visit. Has she tried splinting? Subjective Subjective: She had a fibroid tumor removed from her cervix in April 2024. She could feel it right inside the vaginal opening. She had surgery in April. In June, she started feeling something again. She thought it was another fibroid. She had quite a bit of pain with the fibroid but nothing recently. She isn't having bulging outside and it goes away sometimes. Dr. Benítez said she could do surgery. She mentioned a pessary but she wants to try PT first. Sometimes she feels that she doesn't empty her bladder completely. She hasn't had a period in 4-5 months. No leakage. She feels pressure vaginally with lifting. She doesn't think she "works hard". She does housework, cooking, gardening. 7 children, 10 pregnancies. All vaginal deliveries. First baby she had major tearing with 20 stitches. Sometimes she has lower back pain. Not that she can't do her work. More at nighttime. Not worse on one side. Sometimes she feels like she doesn't empty her bowels completely. She gets up 2 x night. She hasn't tried kegels. No pain. She is uncomfortable with intercourse. Her goal is to manage the prolapses without surgery. Pain Low back pain: Pain Intensity (Out of 10): 2 Pain Intensity Range: 2 and 4 Objective Objective: POPDI-6 5, CRAD-8 9, NILDA-6 2 LAYCOCK 1 DIFFICULTY RELAXING AND ENGAGING ANTERIORLY- contraction barely palpable MILD, MODERATE PELVIC FLOOR TIGHTNESS LEFT SIDE LAYER 2-3 CYSTOCELE 1 RECTOCELE 2 Can feel cervix at tip of finger Did not look at breathing or low back yet Goals Goal 1:: Radha will be able to be on her feet for up to 1-2 hours at a time to do cooking activities without feeling vaginal pressure due to her prolapse. 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 Goal Time Frame: 8-12 Weeks Goal 3:: Radha will be independent with splinting for bowel movements and will not experience difficulty eliminating. Goal Time Frame: 8-12 Weeks Rehabilitation Potential Physical Therapy Diagnosis: Rectocele, Cystocele Rehabilitation Potential: Good Anticipated Interventions Patient/Client Instruction: Educate patient on: Condition and Plan of Care For the Purpose of:: To improve muscle performance and motor function, To improve ability to perform ADL's, To increase tolerance to activity/condition/position, To improve health and function and To improve self management Therapeutic Exercise to Include: Strength training and Neuromotor development Comment: Pelvic floor strengthening to support pelvic organs and lessen prolapse For the Purpose of:: To improve muscle performance and motor function, To increase tolerance to activity/condition/position, To improve performance and independence with ADL's, To improve health and function and To improve self management Manual Therapy Techniques to Include: Trigger point massage and Soft tissue mobilization For the Purpose of:: To improve muscle performance and motor function Text: Thank you for the opportunity to evaluate your patient. For Medicare and Medicare HMO plans, please review the plan of care and approve it. It will need to be FAXED BACK to us at [phone] for Medicare purposes. For Medicare only, by signing this I certify the plan of care. Please let me know if there are questions or concerns regarding this plan of care. Physician Signature: Date:
--- NOTE | 2024-11-13 13:08 | HP.PTREVAL_ITS ---
Re-Evaluation Intro: Dr. Brittani Cho, DO, It has been my pleasure to treat RADHA GRIFFITHS over the last 10 visits for Cystocele, rectocele, uterovaginal prolapse, low back pain, unspecified. Please see the progress note below for an update on the physical therapy plan of care! Subjective Subjective: She reports 80% improvement in her ability to do a kegel. Low back pain has been 1-2/10. Exercises are really helping. Minimal pain into the left hip and no pain into the left leg. She hasn't felt the pain in her leg or hip since last visit. She is very pleased with her progress. Objective Objective/Function: She is doing really well. 80% improvement in her pelvic floor contraction ability. She reports 70% improvement in her left hip, lumbar pain as well. She is ready to start spacing out her visits after next week. She would benefit from continued skilled PT intervention to address her continued low back, hip pain and pelvic floor concerns. Adding 10 additional visits to the initial POC and adding Low back pain, unspecified to diagnosis codes as we have been focusing on that for the last several visits. Adding lumbar goal to POC. Plan Plan Plan: Continue work on left lumbar, piriformis. She has the full 7 week pelvic floor strengthening program. How did she do without traction this visit? May need to resume if pain levels increase again? Does she want needling again? Goals Goals Goal 1:: Radha will be able to be on her feet for up to 1-2 hours at a time to do cooking activities without feeling vaginal pressure due to her prolapse. 11/13/24 Reports 80% improvement. 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 11/13/24 Reports 80% improvement. Goal Time Frame: 8-12 Weeks Goal Progress: Progressing Goal 3:: Radha will be independent with splinting for bowel movements and will not experience difficulty eliminating. 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 Goal Time Frame: 8-12 Weeks Anticipated Interventions Anticipated Interventions Patient/Client Instruction: Educate patient on: Condition and Plan of Care For the Purpose of:: To improve muscle performance and motor function, To improve ability to perform ADL's, To increase tolerance to activity/condition/position, To improve health and function and To improve self management Therapeutic Exercise to Include: Strength training and Neuromotor development Comment: Pelvic floor strengthening to support pelvic organs and lessen prolapse For the Purpose of:: To improve muscle performance and motor function, To increase tolerance to activity/condition/position, To improve performance and independence with ADL's, To improve health and function and To improve self management Manual Therapy Techniques to Include: Trigger point massage and Soft tissue mobilization For the Purpose of:: To improve muscle performance and motor function Ultrasound (thermal/non thermal): Yes Pelvic traction prone: Yes For the Purpose of:: To decrease pain, To improve muscle performance and motor function and To improve health and function Re-Evaluation Ending Re-evaluation ending: Please do not hesitate to contact me at [phone] by phone or if you have questions or concerns regarding this new plan of care! Sincerely, Rosanna Wyatt
== END 2025-03-06 19:00 | disposition home or self-care (01) ==
LOC: PT 10:30
PROVIDERS: PCP Family Medicine; Referring Provider Obstetrics & Gynecology; Visit Provider Obstetrics & Gynecology
DX: N81.4 Uterovaginal prolapse, unspecified (principal)
CPT/HCPCS: 97012; 97110; 97112; 97140; 97162; 97530